=== PATIENT | female | born 1955 | race Native Hawaiian/Other Pacific Islander ===

== ENCOUNTER 2017-04-17 12:19 | Emergency (ER) | payer OTHER ==
[2017-04-17 12:52] VITALS: BMI 26.5
[2017-04-17 12:55] VITALS: BP 133/75; PULSE 85; RESP 18; TEMP 98.1; O2SAT 98
--- NOTE | 2017-04-17 13:35 | C.PDOC ---
History Of Present Illness 62 year old female presents to the ED for evaluation of recurring back pain x 7 days. Patient states she saw her PMD for same complaints on 04/12 and was given Motrin but has found no improvement. Patient states pain is to her bilateral lower back with radiation to bilateral groin regions. Pain is worse with movement and relieved with rest. Patient reports prior history of similar symptoms. Patient denies any other associated symptoms. RECUR BACK PAIN X 7 DAYS. SAW PMD FOR SAME 04/12, GIVEN MOTRIN BUT NO IMPROVE. BL LOWER BACK RADIATION B/L GROIN. WORSE W MOVEMENT, RELIEVES W REST. HO PRIOR SIM SX. DENIES OTHER ASSOC SX EXAM MILD DIST NONTOXIC BACK LIMITED ROM DUE TO PAIN. NO FOCAL TEND ABD NEG NEURO INTACT Time Seen by Provider: 04/17/17 12:45 Chief Complaint (Nursing): Back Pain History Per: Patient History/Exam Limitations: no limitations Onset/Duration Of Symptoms: Days (7) Current Symptoms Are (Timing): Still Present Quality Of Discomfort: "Pain" Previous Symptoms: Back Pain Associated Symptoms: denies: Incontinence, New Weakness, New Numbness Additional History Per: Patient Past Medical History Reviewed: Historical Data, Nursing Documentation, Vital Signs Vital Signs: Last Vital Signs Temp 98.1 F 04/17/17 12:52 Pulse 85 04/17/17 12:52 Resp 18 04/17/17 12:52 BP 133/75 04/17/17 12:52 Pulse Ox 98 04/17/17 23:28 - Medical History PMH: Diabetes Surgical History: No Surg Hx Family History: States: Unknown Family Hx - Social History Hx Tobacco Use: No Hx Alcohol Use: No Hx Substance Use: No - Immunization History Hx Tetanus Toxoid Vaccination: No Hx Influenza Vaccination: Yes Hx Pneumococcal Vaccination: No Review Of Systems Genitourinary: Negative for: Incontinence Musculoskeletal: Positive for: Back Pain (bilateral lower back ), Other ( bilateral groin pain ) Neurological: Negative for: Weakness, Numbness Physical Exam - Physical Exam Appears: Non-toxic, Other (mild distress ) Skin: Normal Color, Warm, Dry Head: Atraumatic, Normacephalic Eye(s): bilateral: Normal Inspection Oral Mucosa: Moist Neck: Supple Chest: Symmetrical, No Deformity, No Tenderness Cardiovascular: Rhythm Regular Respiratory: Normal Breath Sounds Gastrointestinal/Abdominal: Soft, No Tenderness, No Guarding, No Rebound Back: Decreased ROM (secondary to pain ), Other (no focal tenderness ) Extremity: Normal ROM, Capillary Refill (less than 2 seconds ) Neurological/Psych: Oriented x3, Normal Speech, Normal Cognition Gait: Steady ED Course And Treatment O2 Sat by Pulse Oximetry: 98 (on RA) Pulse Ox Interpretation: Normal Progress Note: Percocet PO, Tylenol PO and Lidoderm TD administered. Disposition Counseled Patient/Family Regarding: Diagnosis, Need For Followup, Rx Given - Disposition Referrals: YOUR,PMD [Other] Disposition: HOME/ ROUTINE Disposition Time: 13:37 Condition: IMPROVED Prescriptions: Cyclobenzaprine [Flexeril] 10 mg PO TID #15 tab Dexamethasone [Decadron] 8 mg PO ONCE #2 tab Lidocaine 5% [Lidoderm] 1 ea TD PRN PRN #10 patch PRN Reason: Pain, Moderate (4-7) Instructions: Acute Low Back Pain (ED) Forms: [facility] ([place]), Work Excuse - Clinical Impression Clinical Impression: Low back pain - Scribe Statement The provider has reviewed the documentation as recorded by the Scribe (Charlotte Vasquez) Provider Attestation: All medical record entries made by the Scribe were at my direction and personally dictated by me. I have reviewed the chart and agree that the record accurately reflects my personal performance of the history, physical exam, medical decision making, and the department course for this patient. I have also personally directed, reviewed, and agree with the discharge instructions and disposition.
[2017-04-17] MEDS ORDERED: Oxycodone/Acetaminophen 5/325 mg Tab PO STA (13:36)
[2017-04-17] MEDS ORDERED: Lidocaine 5% Patch TD STA (13:36)
[2017-04-17] MEDS ORDERED: Oxycodone/Acetaminophen 5/325 mg Tab ONE (13:45)
[2017-04-17] MEDS ORDERED: Lidocaine 5% Patch TD ONE ×2 (13:45→13:47)
== END 2017-04-17 13:54 | disposition home or self-care (01) ==
LOC: C.ER 12:19
DX: M54.5 Low back pain (principal)